=== PATIENT | female | born 1965 | race Caucasian/White ===

== ENCOUNTER 2016-09-23 20:21 | Emergency (ER) | payer MEDICAID, OTHER ==
[~2016-09-23] VITALS: Ht 157.5 cm; Wt 72.0 kg
[~2016-09-23 20:21] MED LIST: VERTIGO MED; [UNRECOGNIZED DRUG - OTHER]
[2016-09-23 21:02] LABS: BASOPHILS % (AUTO) 0.4 % (0.0-2.0); EOSINOPHILS % (AUTO) 0.8 % (1.0-6.0); HEMATOCRIT 37.9 % (36-46); HEMOGLOBIN 12.4 g/dL (12.0-16.0); LYMPHOCYTES # (AUTO) 2.9 K/uL (1.0-4.8); LYMPHOCYTES % (AUTO) 35.7 % (22.0-44.0); MEAN CORPUSCULAR HEMOGLOBIN 28.5 pg (26.0-34.0); MEAN CORPUSCULAR HGB CONC 32.7 G/dL (31.0-37.0); MEAN CORPUSCULAR VOLUME 87 fL (80-100); MONOCYTES # (AUTO) 0.6 K/uL (0.1-1.0); MONOCYTES % (AUTO) 7.3 % (2.0-9.0); NEUTROPHILS # (AUTO) 4.5 K/uL (1.8-7.7); NEUTROPHILS % (AUTO) 55.8 % (40.0-70.0); PLATELET COUNT (AUTO) 168 K/uL (150-450); RED BLOOD CELL COUNT(AUTO) 4.35 MIL/uL (4.00-5.20); WHITE BLOOD COUNT (AUTO) 8.1 K/uL (4.5-11.0)
[2016-09-23 21:13] LABS: CALCIUM, TOTAL 8.6 mg/dL (8.8-10.5); CREATININE 1.04 mg/dL (0.60-1.30); POTASSIUM 4.1 mmol/L (3.5-5.1)
[2016-09-23] MEDS ORDERED: SODIUM CHLORIDE 0.9% 1,000 ML IV ONE (21:15)
[2016-09-23] MEDS ORDERED: MECLIZINE HCL 25 MG TABLET PO ONE (21:15)
[2016-09-23 21:17] LABS: GLUCOSE,POINT OF CARE 103 MG/DL (70-110)
[2016-09-23 21:27] LABS: ALBUMIN 3.7 g/dL (3.4-5.0); BILIRUBIN,TOTAL 0.3 mg/dL (0.1-1.0); TOTAL PROTEIN, SERUM 6.9 g/dL (6.4-8.2)
[2016-09-24] MEDS ORDERED: DiphenhydrAMINE HCL 50 MG/ML VIAL IVP ONE
[2016-09-24] MEDS ORDERED: PROCHLORPERAZINE EDISYLATE 5 MG/ML 2 ML VIAL IVP ONE
[2016-09-24 00:59] VITALS: BP 121/78
[2016-09-24] MEDS ORDERED: LORazepam 1 MG TABLET PO ONE (01:00)
== END 2016-09-24 01:09 | disposition home or self-care (01) ==
LOC: EMS 20:25
DX: G43.909 Migraine, unspecified, not intractable, without status migrainosus (principal)
CPT/HCPCS: 36415; 70450; 80053; 82948; 82962; 83690; 84484; 85025; 93005; 96361; 96374; 96375; 99285; J0780; J1200; J7030